=== PATIENT | male | born 1995 | race Caucasian/White ===

== ENCOUNTER 2017-01-21 11:32 | Emergency (ER) | payer OTHER ==
[~2017-01-21] VITALS: Ht 170.2 cm; Wt 95.0 kg
[2017-01-21 11:35] VITALS: Ht 170.2 cm; Wt 95.0 kg
--- NOTE | 2017-01-21 12:47 | RADRPT ---
PROCEDURE: CT brain without contrast CLINICAL INDICATION: Small bump at the left frontal area, growing, with vision problems TECHNIQUE: CT of the brain without contrast was performed on a multidetector CT scanner, with multi planar reformats. One or more of the following dose reduction techniques were used: Automated expos ure control, adjustment in mA and / or kV according to patient size, use of iterative reconstructive technique. CTDIvol = 30 mGy; DLP = 451 mGy-cm. COMPARISON: None available FINDINGS: No acute intracranial hemorrhage is identified. No extra-axial fluid collection is seen. There is no mass effect. No midline shift is identified. Ventricles and sulci are within normal limits for size and configuration. The density of the brain is within normal limits. Sal-white differentiation is preserved. Calvarium and skull base are intact and there is a small area of focal swelling or soft tissue thick ening at the left frontal scalp, nonspecific. Mastoid air cells and imaged paranasal sinuses grossl y clear. IMPRESSION: 1. No evidence of acute intra pathology; unremarkable noncontrast CT of the brain. 2. Small area of focal left frontal scalp swelling/thickening, nonspecific. Correlate clinically. RPTAT: VV .Chemo Sevilla MD, MD Date Time Electronically viewed and signed by .Chemo Sevilla MD, on 01/21/2017 12:47 .O/
[2017-01-21] MEDS ORDERED: CEPH-443 PO (13:23)
[2017-01-21] MEDS ORDERED: IBUP-1542 PO (13:23)
[2017-01-21 13:48] VITALS: BP 128/79; PULSE 72; RESP 16; TEMP 98.6
--- NOTE | 2017-01-21 17:50 | ERD ---
ER Documentation Chief Complaint Date/Time DATE: 01/21/17 TIME: 17:46 Chief Complaint had head contusion 2 weeks ago, wants to have checked HPI 21-year-old man with a small soft swelling to the left upper forehead he states has been present for the last 2 months. He denies that it has been growing in size but states pain increased after he fell while playing basketball 2 weeks ago. He denies fevers or chills, no headache or blurry vision, no chest pain or shortness of breath. Patient denies discharge from the skin over the forehead, no rhinorrhea, no sore throat, no weakness in his arms or legs. ROS All systems reviewed and are negative except as per history of present illness. Medications Home Meds Active Scripts Cephalexin* (Keflex*) 500 Mg Capsule, 500 MG PO TID for 7 Days, CAP Prov:TAMMY LYNN MD 01/21/17 Ibuprofen* (Motrin*) 600 Mg Tab, 600 MG PO Q8 for PAIN AND/OR INFLAMMATION, #30 TAB Prov:TAMMY LYNN MD 01/21/17 PMhx/Soc None Medical and Surgical Hx: pt denies Medical Hx, pt denies Surgical Hx History of Surgery: No Anesthesia Reaction: No Hx Neurological Disorder: No Hx Respiratory Disorders: No Hx Cardiac Disorders: No Hx Psychiatric Problems: No Hx Miscellaneous Medical Probl: No Hx Alcohol Use: No Hx Substance Use: Yes (MJ) Hx Tobacco Use: No Smoking Status: Never smoker FmHx Family History: No diabetes Physical Exam Vitals Vital Signs Date Time Temp Pulse Resp B/P Pulse Ox O2 Delivery O2 Flow Rate FiO2 01/21/17 13:48 98.6 72 16 128/79 99 Room Air 01/21/17 11:35 97.9 68 18 133/86 99 Physical Exam GENERAL: Well-developed, well-nourished, well-hydrated, in no apparent distress , looks nontoxic in appearance HEENT: +3 cm circular soft tissue contusion to the left upper forehead, no bony tenderness or deformity noted to the skull, moist mucous membranes, pink conjunctiva, no cervical spine tenderness or step-off deformities, no goiter, no jaundice or icterus, extraocular movements intact without pain. No submandibular induration, and no pharyngeal erythema NEURO: Alert and oriented 3, cranial nerves II through XII intact bilaterally, pupils equal round reactive to light, no focal deficits or facial asymmetry, sensation intact distally Strength 5/5 in upper and lower extremities bilaterally CARDIAC: Regular rate and rhythm, no murmurs rubs or gallops LUNGS: Clear bilaterally no wheezing crackles or stridor ABDOMEN: Soft nontender, no guarding, no rigidity, no rebound, no psoas sign no obturator sign. Normoactive bowel sounds SKIN: Warm and dry to touch, no abrasions, positive soft tissue contusion over the left upper forehead without skin erythema or induration, no lacerations, no ecchymosis, no target lesions, and without ulcers EXTREMITIES: No clubbing cyanosis or edema, calves are bilaterally symmetrical, no Homans sign, no popliteal cord sign. Distal pulses equal and bilateral PSYCH: Normal affect without agitation or irritability Procedures/MDM CT scan of the brain was performed there was no acute inflammatory pathology noted, no periosteal changes of the skull or frontal bone noted. Please refer to radiologist dictation for full report. Differential diagnoses considered, included but not limited to Pott's puffy tumor, osteomyelitis, cavernous venous thrombosis, sinusitis, meningitis, encephalitis, pneumonia, appendicitis, cholecystitis, bowel obstruction, pyelonephritis, nephrolithiasis, cystitis, as well as metabolic, hematologic, and electrolyte abnormalities. As well as abscess, cellulitis, fractures, and dislocations. Patient feels much better at this time, and vital signs are normal, symptoms have improved. I did give strict instructions to return to the ED if symptoms continue or worsen, patient will otherwise follow-up with primary care physician. Patient understood instructions and agreed to plan. Disclaimer: Inadvertent spelling and grammatical errors are likely due to EHR/ dictation software use and do not reflect on the overall quality of patient care. Also, please note that the electronic time recorded on this note does not necessarily reflect the actual time of the patient encounter. Departure Diagnosis: Primary Impression: Hematoma Additional Impression: Forehead contusion Condition: Good TAMMY LYNN MD Jan 21, 2017 17:50
== END 2017-01-21 13:48 | disposition home or self-care (01) ==
LOC: FTE 11:32
DX: S00.83XA Contusion of other part of head, initial encounter (principal); W18.39XA Other fall on same level, initial encounter; Y92.9 Unspecified place or not applicable
CPT/HCPCS: 70450

== ENCOUNTER → 2017-06-10 | Emergency (ER) | payer SELFPAY ==
[~2017-06-10] VITALS: Wt 79.0 kg
[~2017-06-10] MED LIST: CEPH-443 PO; IBUP-1542 PO
== END | disposition left against medical advice (07) ==
LOC: FTE 11:47
DX: Z53.21 Procedure and treatment not carried out due to patient leaving prior to being seen by health care provider (principal)

== ENCOUNTER 2017-06-14 15:53 | Emergency (ER) | END 2017-06-14 19:01 | disposition home or self-care (01) ==